=== PATIENT | female | born 1990 | race Caucasian/White ===

== ENCOUNTER 2022-08-30 10:25 | Inpatient (IN) | payer BC ==
[2022-08-30] MEDS ORDERED: METHYLERGONOVINE 0.2 MG/ML 1 ML AMP IM PRN (10:46)
[2022-08-30] MEDS ORDERED: CARBOPROST TROMETHAMINE 250 MCG/ML 1 ML AMP IM PRN (10:46)
[2022-08-30] MEDS ORDERED: OXYTOCIN 10 UNIT/ML 1 ML VIAL IM PRN (10:46)
[2022-08-30] MEDS ORDERED: TRANEXAMIC 1,000 MG/100ML-NACL 1,000 MG in EMPTY BAG 1 BAG IV PRN (10:46)
[2022-08-30] MEDS ORDERED: TERBUTALINE 1 MG/ML VIAL SQ PRN (10:46)
[2022-08-30] MEDS ORDERED: LIDOCAINE 0.5% (PF) 5 MG/ML (50 ML SDV) SQ PRN (10:46)
[2022-08-30] MEDS ORDERED: miSOPROStoL 200 MCG TAB PO PRN (10:46)
[2022-08-30] MEDS ORDERED: OXYTOCIN 30 UNITS/500 ML NS 30 UNIT in SALINE 1 500ML.BAG IV SCH ×2 (11:00→15:45)
[2022-08-30] MEDS: LACTATED RINGERS 1,000 ML IV SCH ×2 (11:00→11:57)
--- NOTE | 2022-08-30 11:29 | P.HPOB ---
History of Present Illness H&P Date: 08/30/22 Chief Complaint: Active Labor Ms. Unger is a 31 year old at 40 weeks and 2 days with EDC of 08/28/2022 (by LMP consistent with a 9 week US) who presents to labor and delivery with painful contractions every 2-3 minutes. The has been uncomplicated. Growth ultrasound at 37 weeks estimated the fetus to be in the 51%ile for gestational age. Maternal work-up: blood type O positive, antibody negative, rubella NON-IMMUNE, VDRL non-reactive, HBsAg negative, HIV negative, 1 hour GTT 97, GBS negative Past medical history: asthma, anxiety, depression Past surgical history: wisdom teeth extraction Past Medical History History of Any Multi-Drug Resistant Organisms: None Reported Smoking Status: Former smoker Medications and Allergies Home Medications Medication Instructions Recorded Confirmed Type Albuterol Inhaler [Ventolin Hfa 2 puff INHALATION DIRECTED 08/30/22 08/30/22 History Inhaler] Aspirin [Children's Aspirin] 81 mg PO DAILY 08/30/22 08/30/22 History Vit No.179/Iron/Folic 1 tab PO DAILY 08/30/22 08/30/22 History [ Tablet] Allergies Allergy/AdvReac Type Severity Reaction Status Date / Time diphenhydramine AdvReac Rash/Hives Verified 08/30/22 10:37 [From Benadryl] Exam Intake and Output 08/29/22 08/30/22 08/30/22 22:59 06:59 14:59 Other: Weight 72.575 kg Focused physical exam is performed. This is a healthy-appearing breathing through contractions. Abdomen gravid, firm with contractions. Cervical exam is 6 centimeters dilated, 100% effaced, and -1 station. AROM is undertaken revealing meconium-stained fluid. Extremities are non-tender, non- edematous. Assessment and Plan Assessment: 31 year old at 40 weeks and 2 days presenting in active labor Plan: Admit, NPO, mIVF, epidural prn, continuous EFM, close monitoring of patient, expectant management. Time with Patient: Less than 30 (15 minutes)
[2022-08-30 11:44] LABS: Basophils % (A) 0 %; Eosinophils % (A) 0 %; HCT 32.8 % (34.0-46.0); HGB 10.9 gm/dL (11.4-16.0); Lymphocytes # (A) 1.3 k/uL (1.0-4.8); Lymphocytes % (A) 8 %; MCH 29.7 pg (25.0-35.0); MCHC 33.3 g/dL (31.0-37.0); MCV 89.1 fL (80.0-100.0); Mean Platelet Volume 12.6; Monocytes # (A) 0.8 k/uL (0-1.0); Monocytes % (A) 5 %; Neutrophils # (A) 13.6 k/uL (1.3-7.7); Neutrophils % (A) 86 %; Platelet Count 167 k/uL (150-450); RBC 3.69 m/uL (3.80-5.40); RDW 13.3 % (11.5-15.5); WBC 15.8 k/uL (3.8-10.6)
[2022-08-30 11:56] LABS: Large Platelets Present; RBC Morphology Normal
[2022-08-30] MEDS ORDERED: fentaNYL (PF) 50 MCG/ML 5 ML AMP ONE (12:04)
[2022-08-30] MEDS ORDERED: ROPIVACAINE 5 MG/ML 20 ML AMPULE ONE (12:04)
[2022-08-30] MEDS ORDERED: SODIUM CHLORIDE 0.9% 100 ML BAG ONE (12:04)
[2022-08-30] MEDS ORDERED: ACETAMINOPHEN TAB 325 MG TAB PO PRN (15:42)
[2022-08-30] MEDS ORDERED: MEASLES-MUMPS-RUBELLA VACC/PF 12,500 UNIT/0.5 ML VIAL SQ ONE (15:42)
[2022-08-30] MEDS ORDERED: HYDROCORTISONE 2.5% RECTAL CREAM 30 GM TUBE RECTAL PRN (15:42)
[2022-08-30] MEDS ORDERED: LANOLIN CREAM 5 GM TUBE TOPICAL PRN (15:42)
[2022-08-30] MEDS ORDERED: SIMETHICONE 80 MG CHEWABLE PO PRN (15:42)
[2022-08-30] MEDS ORDERED: BENZOCAINE/MENTHOL SPRAY 1 GM/SPRAY AEROSOL TOPICAL PRN (15:42)
[2022-08-30] MEDS ORDERED: ZOLPIDEM 5 MG TAB PO PRN (15:42)
--- NOTE | 2022-08-30 15:48 | P.PROBDLV ---
Vaginal Delivery Note - . Vaginal Delivery Note: DATE OF SERVICE: 08/30/2022 PROCEDURE: Normal Spontaneous Vaginal Delivery ATTENDING: Dr. Genny Mora MD ESTIMATED BLOOD LOSS: 300 mL FINDINGS: VFI, Apgars 8/9. Weight 7 pounds and 14 grams PROCEDURE: Ms. Unger is a 31 year old at 40 weeks and 2 days presenting to labor and delivery in active labor. Her has been uncomplicated. The patient received epidural anesthesia per her request. She was expectantly managed and progressed quickly to complete dilation. heart tones were Category I throughout the labor. The patient was completely dilated at 1400. The head was delivered over an intact perineum without difficulty followed by shoulders and body. A viable female was delivered at 1522. The infant was placed on the maternal abdomen and bulb suctioned. Cord was clamped and cut after a 30-second delay. The infant was handed off to the pediatric team. Placenta was delivered whole with gentle cord traction. Oxytocin was started to facilitate uterine tone. Uterine fundus was found to be firm and below the umb ilicus upon fundal massage. Thorough examination of the cervix, vagina, periurethral area, and perineum revealed a small second degree laceration and a right labia majora laceration. The second degree laceration was repaired with 2- 0 Vicryl in the usual fashion. The labial laceration was repaired with 3-0 Vicryl in a running fashion. Excellent hemostasis was noted at the end of the repairs.The patient is stable and allowed to begin the bonding process.require repair and an intact perineum. Patient stable .
[2022-08-30] MEDS: IBUPROFEN 600 MG TAB PO PRN (18:58)
[2022-08-30] MEDS: SENNOSIDES-DOCUSATE SODIUM 1 EACH TAB PO SCH (21:47)
[2022-08-31] MEDS: IBUPROFEN 600 MG TAB PO PRN ×2 (00:34→07:51)
[2022-08-31 07:13] LABS: Basophils % (A) 0 %; Eosinophils # (A) 0.2 k/uL (0-0.7); Eosinophils % (A) 1 %; HCT 26.4 % (34.0-46.0); Lymphocytes # (A) 2.3 k/uL (1.0-4.8); Lymphocytes % (A) 16 %; MCH 30.2 pg (25.0-35.0); MCHC 34.2 g/dL (31.0-37.0); MCV 88.3 fL (80.0-100.0); Mean Platelet Volume 12.9; Monocytes # (A) 0.8 k/uL (0-1.0); Monocytes % (A) 5 %; Neutrophils # (A) 11.3 k/uL (1.3-7.7); Neutrophils % (A) 76 %; Platelet Count 147 k/uL (150-450); RBC 2.99 m/uL (3.80-5.40); RDW 13.8 % (11.5-15.5); WBC 14.8 k/uL (3.8-10.6)
[2022-08-31] MEDS: SENNOSIDES-DOCUSATE SODIUM 1 EACH TAB PO SCH (07:50)
--- NOTE | 2022-08-31 08:31 | P.PNOBGVD ---
Subjective - Subjective Principal diagnosis: s/p Interval history: The patient is doing well this morning and had no acute events overnight. She has no complaints this morning. She reports minimal lochia, passing flatus, voiding without difficulty, ambulating, and eating/drinking without nausea or vomiting. She is her without difficulty. She denies chest pain, shortness of breathing, fevers, or chills overnight. She denies pain or swelling in the legs. Patient reports: Reports appetite normal, Reports voiding normally, Reports pain well controlled, Reports ambulating normally : doing well Objective - Latest Vital Signs Latest vital signs: Vital Signs Temp Pulse Resp BP Pulse Ox 08/30/22 23:53 18 08/30/22 23:52 98.5 F 78 18 121/58 08/30/22 20:00 98.6 F 92 16 112/65 08/30/22 17:32 83 17 116/61 08/30/22 17:03 83 17 109/60 08/30/22 16:33 98.5 F 75 16 108/56 08/30/22 16:18 78 18 123/59 08/30/22 16:03 97 17 123/73 08/30/22 15:48 88 17 121/59 08/30/22 15:33 97.5 F L 80 17 112/53 08/30/22 11:35 97.9 F 92 17 125/75 97 08/30/22 10:34 97.9 F 92 17 125/75 97 Intake and Output 08/30/22 08/31/22 08/31/22 22:59 06:59 14:59 Intake Total 172.567 Output Total 350 Balance -177.433 Intake: Intake, IV Titration 172.567 Amount Oxytocin 30 Units/500 ml 172.567 Ns 30 unit In Saline 1 500ml.bag @ Per Protocol IV .Q0M [facility] Rx#:[id number] Output: Output, Quantitative 350 Blood Loss Other: Voiding Method Toilet # Voids 1 2 - Exam Extremities: Present: normal Abdomen: Present: normal appearance, soft Uterus: Present: normal, firm - Labs Labs: Abnormal Lab Results - Last 24 Hours (Table) 08/30/22 08/31/22 Range/Units 11:00 06:04 WBC 15.8 H 14.8 H (3.8-10.6) k/uL RBC 3.69 L 2.99 L (3.80-5.40) m/uL Hgb 10.9 L 9.0 L D (11.4-16.0) gm/dL Hct 32.8 L 26.4 L (34.0-46.0) % Plt Count 147 L (150-450) k/uL Neutrophils # 13.6 H 11.3 H (1.3-7.7) k/uL Assessment and Plan Assessment: 31 year old now PPD#1 s/p Plan: Patient meeting all milestones, anticipate discharge home this afternoon.
--- NOTE | 2022-08-31 08:32 | P.DS ---
Providers Date of admission: 08/30/22 10:42 Expected date of discharge: 08/31/22 Attending physician: Genny Mora MD Primary care physician: Stated None Hospital Course: This is a 31 year old now PPD#1 s/p . The patient is doing well this morning and had no acute events overnight. She has no complaints this morning. She reports minimal lochia, passing flatus, voiding without difficulty, ambulating, and eating/drinking without nausea or vomiting. Infant doing well at bedside, nursing well. She denies chest pain, shortness of breathing, fevers, or chills overnight. She denies pain or swelling in the legs. restrictions are reviewed with the patient including pelvic rest for 6 weeks. The patient is encouraged to call the office if she experiences any heavy bleeding, foul-smelling discharge, breast complaints, mood concerns, or any if she has any other concerns. She will follow up in the office in 6 weeks for exam. All questions are answered. Assessment: 31 year old now PPD#1 s/p Patient Condition at Discharge: Good Plan - Discharge Summary New Discharge Prescriptions: No Action Vit No.179/Iron/Folic [ Tablet] 1 tab PO DAILY Aspirin [Children's Aspirin] 81 mg PO DAILY Albuterol Inhaler [Ventolin Hfa Inhaler] 2 puff INHALATION DIRECTED Discharge Medication List Albuterol Inhaler [Ventolin Hfa Inhaler] 2 puff INHALATION DIRECTED 08/30/22 [History] Aspirin [Children's Aspirin] 81 mg PO DAILY 08/30/22 [History] Vit No.179/Iron/Folic [ Tablet] 1 tab PO DAILY 08/30/22 [History]
[2022-08-31 08:42] VITALS: BP 114/72; PULSE 84; RESP 16; TEMP 98.6
== END 2022-08-31 16:00 | disposition home or self-care (01) | DRG 807 ==
LOC: FBPOP 10:25 → 4FBP 10:42
PROVIDERS: ADMIT Obstetrics & Gynecology; ATTEND Obstetrics & Gynecology
PROC: 10E0XZZ Delivery of Products of Conception, External Approach (ICD-10-PCS; principal; 2022-08-30)
PROC: 0KQM0ZZ Repair Perineum Muscle, Open Approach (ICD-10-PCS; 2022-08-30)
PROC: 0UQMXZZ Repair Vulva, External Approach (ICD-10-PCS; 2022-08-30)
PROC: 10907ZC Drainage of Amniotic Fluid, Therapeutic from Products of Conception, Via Natural or Artificial Opening (ICD-10-PCS; 2022-08-30)
PROC: 3E0R3BZ Introduction of Anesthetic Agent into Spinal Canal, Percutaneous Approach (ICD-10-PCS; 2022-08-30)
DX: O48.0 Post-term pregnancy (principal); Z37.0 Single live birth; O70.1 Second degree perineal laceration during delivery; Z3A.40 40 weeks gestation of pregnancy; Z87.891 Personal history of nicotine dependence; Z79.82 Long term (current) use of aspirin; Z88.8 Allergy status to other drugs, medicaments and biological substances; Z79.899 Other long term (current) drug therapy
CPT/HCPCS: 59025; 85025; 86850; 86900; 86901; 90707; 99213